=== PATIENT | female | born 2005 | race Caucasian/White ===

== ENCOUNTER 2023-08-10 23:15 | Emergency (ER) | payer OTHER ==
[~2023-08-10] VITALS: Ht 162.6 cm; Wt 58.0 kg
[2023-08-10 23:29] VITALS: BP 93/66; PULSE 84; RESP 18; TEMP 98.2; O2SAT 98
== END 2023-08-11 01:44 | disposition left against medical advice (07) ==
LOC: ER 23:15
DX: Z53.21 Procedure and treatment not carried out due to patient leaving prior to being seen by health care provider (principal)
CPT/HCPCS: 99281